=== PATIENT | male | born 1955 | race Caucasian/White ===

== ENCOUNTER 2023-01-31 17:43 | Inpatient (IN) | payer MEDICAID ==
[~2023-01-31] VITALS: Ht 182.9 cm; Wt 98.0 kg
[2023-02-01 03:13] LABS: BG BASE EXCESS 2.2 mmol/L (-2.0-2.0); BG CARBOXYHEMOGLOBIN 1.6 % (0.5-1.5); BG DEOXYHEMOGLOBIN 8.1 % (0.0-5.0); BG FRACTION INSPIRED OXYGEN 21; BG HCO3 ACT 28.6 mmol/L (22.0-26.0); BG METHEMOGLOBIN 0.1 % (0.0-1.5); BG OXYGEN SATURATION 91.8 % (92.0-98.5); BG OXYHEMOGLOBIN 90.2 % (94.0-97.0); BG PCO2 51.9 mmHg (35.0-45.0); BG PH 7.359 (7.350-7.450); BG PO2 62.4 mmHg (75.0-100.0); BG SAMPLE SITE RIGHT RADIAL; BG TOTAL HEMOGLOBIN 13.2 g/dL (12.0-18.0); BG VENT MODE ROOM AIR
[2023-02-01 03:23] LABS: BASOPHILS % 0.7 % (0.0-2.0); EOSINOPHILS % 3.4 % (0.0-5.0); HEMATOCRIT. 36.9 % (42.0-52.0); HEMOGLOBIN. 12.5 g/dL (14.0-18.0); LYMPHOCYTES % 24.5 % (20.0-50.0); MEAN CORPUSCULAR HEMOGLOBIN 29.8 pg (28.0-32.0); MEAN CORPUSCULAR VOLUME 87.6 fL (80.0-94.0); MEAN PLATELET VOLUME 9.9 fl (7.4-10.4); MONOCYTES % 9.9 % (2.0-8.0); NEUTROPHILS % 61.5 % (40.0-76.0); PLATELET 198 x1000/uL (130-400); RED BLOOD CELL COUNT 4.21 mill/uL (4.7-6.1); RED CELL DISTRIBUTION WIDTH 13.7 % (11.6-14.6); WHITE BLOOD COUNT 6.5 x1000/uL (4.5-11.0)
[2023-02-01 03:24] LABS: CHLORIDE 108 mEq/L (98-107); INDEX HEMOLYSI 1 (1-3); INDEX ICTERIC 1 (1-4); INDEX LIPEMIC 1 (1-3); POTASSIUM 4.3 mEq/L (3.5-5.1); SODIUM 142 mEq/L (136-145)
[2023-02-01 03:33] LABS: ACETAMINOPHEN < 2 ug/mL (10-30); ALANINE AMINOTRANSFERASE 67 IU/L (13-61); ALBUMIN 3.5 g/dL (3.4-5.0); ASPARTATE AMINOTRANSFERASE 40 IU/L (15-37); BILIRUBIN TOTAL 0.3 mg/dL (0.1-1.0); CALCIUM 8.6 mg/dL (8.5-10.1); CARBON DIOXIDE 29 mEq/L (21-32); CREATININE 0.7 mg/dL (0.6-1.3); ETHANOL BLOOD < 10 mg/dL (-10); GLUCOSE 93 mg/dL (70-105); PROTEIN TOTAL 6.9 g/dL (6.0-8.3); UREA NITROGEN BLOOD 25 mg/dL (7-21)
[2023-02-01] MEDS ORDERED: METHYLPREDNISOLONE SOD SUCC 125MG/2ML (ACT-O-VIAL) IV NR (03:36)
[2023-02-01] MEDS ORDERED: IPRATROPIUM BROMIDE (0.02%) 0.5MG/2.5ML NEB HHN NR (03:36)
[2023-02-01] MEDS ORDERED: ALBUTEROL (0.083%) 2.5MG/3ML NEB HHN NR (03:36)
[2023-02-01 03:50] VITALS: PULSE 89; RESP 20; O2SAT 94
[2023-02-01 04:19] LABS: TROPONIN I HIGH SENSITIVITY 5 ng/L (<78)
[2023-02-01] MEDS ORDERED: ONDANSETRON HCL 4MG/2ML INJ IV PRN (10:45)
[2023-02-01] MEDS ORDERED: ACETAMINOPHEN 325MG TABLET PO PRN (10:45)
[2023-02-01] MEDS ORDERED: IPRATROPIUM/ALBUTEROL 0.5-3(2.5)MG/3ML NEB HHN PRN (10:45)
[2023-02-01 11:01] VITALS: BP 155/80; PULSE 66; RESP 20; TEMP 99
[2023-02-01 11:37] VITALS: BP 155/80; PULSE 66; RESP 20; TEMP 99
[2023-02-01] MEDS: LORAZEPAM 2MG/ML CPJ IV PRN ×2 (14:01→21:09)
[2023-02-01] MEDS: HALOPERIDOL LACTATE 5MG/ML VIAL IM PRN (15:45)
[2023-02-01 16:00] VITALS: BP 138/87; PULSE 61; RESP 18; TEMP 98.2
[2023-02-01 20:00] VITALS: BP 139/88; PULSE 92; RESP 20; TEMP 98.6
[2023-02-02] VITALS: BP 130/77; PULSE 70; RESP 20; TEMP 98.2
[2023-02-02 04:00] VITALS: BP 145/66; PULSE 72; RESP 20; TEMP 98.2
[2023-02-02] MEDS: HALOPERIDOL LACTATE 5MG/ML VIAL IM PRN (07:50)
[2023-02-02 08:00] VITALS: BP 159/94; PULSE 75; RESP 17; TEMP 98.2
[2023-02-02 12:00] VITALS: BP 149/91; PULSE 63; RESP 16; TEMP 96.1
[2023-02-02 16:00] VITALS: BP 147/94; PULSE 61; RESP 16; TEMP 96.5
[2023-02-02 20:00] VITALS: BP 149/87; PULSE 78; RESP 20; TEMP 97.2
[2023-02-02] MEDS: HYDROCODONE/ACETAMINOPHEN 10/325MG TABLET PO PRN (22:00)
[2023-02-03] VITALS (7 sets, daily range): BP systolic 126–177; BP diastolic 74–101; PULSE 61–75; RESP 18–20; TEMP 97.3–98.6; O2SAT 98
[2023-02-03] MEDS: HYDROCODONE/ACETAMINOPHEN 10/325MG TABLET PO PRN ×2 (03:31→08:51)
[2023-02-03] MEDS ORDERED: CLONIDINE 0.1MG TABLET PO PRN (06:45)
[2023-02-03] MEDS ORDERED: ARIP15TA14 PO (06:47)
[2023-02-03] MEDS ORDERED: PREG50CA PO (06:47)
[2023-02-03] MEDS ORDERED: TRAM50TA3 MT (06:47)
[2023-02-03] MEDS ORDERED: CARV6.2548 MT (06:47)
[2023-02-03] MEDS ORDERED: DIVA-73 MT (06:47)
[2023-02-03] MEDS ORDERED: BENA40TA91 MT (06:47)
[2023-02-03] MEDS ORDERED: AMLO10TA80 MT (06:47)
[2023-02-03] MEDS ORDERED: SERT-422 PO (06:53)
[2023-02-03] MEDS ORDERED: DONE-53 PO (06:53)
[2023-02-03] MEDS ORDERED: NALOXONE HCL 0.4MG/ML VIAL IV PRN (07:00)
[2023-02-03] MEDS ORDERED: BENAZEPRIL 10MG TABLET PO SCH (09:00)
[2023-02-03] MEDS ORDERED: ARIPIPRAZOLE 5MG TABLET PO SCH (09:00)
[2023-02-03] MEDS ORDERED: AMLODIPINE 10MG TABLET PO SCH (09:00)
[2023-02-03] MEDS ORDERED: SERTRALINE HCL 50MG TABLET PO SCH (09:00)
[2023-02-03] MEDS ORDERED: DONEPEZIL HCL 10MG TABLET PO SCH (21:00)
== END 2023-02-03 17:48 | disposition home or self-care (01) | DRG 52 ==
LOC: ER 18:29 → 8WST 02-01 03:36 → EDBEDREQ 02-01 04:09 → EDBEDREQTM 02-01 04:09 → 8WST 02-01 10:17
PROVIDERS: ADMIT Internal Medicine; ATTEND Internal Medicine
DX: G92.8 Other toxic encephalopathy (principal); E11.9 Type 2 diabetes mellitus without complications; F12.929 Cannabis use, unspecified with intoxication, unspecified; R74.01 Elevation of levels of liver transaminase levels; Z20.822 Contact with and (suspected) exposure to COVID-19; M19.90 Unspecified osteoarthritis, unspecified site; Z78.1 Physical restraint status
CPT/HCPCS: 36415; 36600; 71045; 80053; 80307; 80320; 80329; 82375; 82805; 82962; 83036; 83605; 84484; 85025; 87426; 93005; 94640; 97162; 99285; C9803; J1630; J2060; J2930; G0480

== ENCOUNTER 2023-02-25 18:36 | Emergency (ER) | payer MEDICAID ==
[~2023-02-25] VITALS: Ht 182.9 cm; Wt 100.0 kg
[~2023-02-25 18:36] MED LIST: AMLO10TA80 MT; ARIP15TA14 PO; BENA40TA91 MT; CARV6.2548 MT; DIVA-73 MT; DONE-53 PO; PREG50CA PO; SERT-422 PO; TRAM50TA3 MT
[2023-02-25 18:59] VITALS: O2SAT 99
[2023-02-25] MEDS ORDERED: PREG50CA PO (18:59)
[2023-02-26 08:22] VITALS: BP 145/96; PULSE 65; RESP 16; TEMP 98.9
== END 2023-02-26 10:47 | disposition home or self-care (01) ==
LOC: ER 18:36
DX: R45.851 Suicidal ideations (principal); E11.9 Type 2 diabetes mellitus without complications; F20.9 Schizophrenia, unspecified; E78.00 Pure hypercholesterolemia, unspecified; I10 Essential (primary) hypertension; M19.90 Unspecified osteoarthritis, unspecified site
CPT/HCPCS: 99284; Z7610; 99283

== ENCOUNTER 2023-03-17 12:00 | Emergency (ER) | payer MEDICAID ==
[~2023-03-17] VITALS: Ht 177.8 cm; Wt 97.5 kg
[2023-03-17 12:04] VITALS: O2SAT 97
[2023-03-17] MEDS ORDERED: ARIP15TA14 PO (12:58)
[2023-03-17 17:16] VITALS: BP 113/76; PULSE 65; RESP 18; TEMP 98.7
== END 2023-03-17 22:00 | disposition home or self-care (01) ==
LOC: ER 12:27
DX: Z76.0 Encounter for issue of repeat prescription (principal); M19.90 Unspecified osteoarthritis, unspecified site; F32.A Depression, unspecified; E11.9 Type 2 diabetes mellitus without complications; E78.00 Pure hypercholesterolemia, unspecified; I10 Essential (primary) hypertension; F20.9 Schizophrenia, unspecified
CPT/HCPCS: 99281